=== PATIENT | female | born 1980 | race Two or more races ===

== ENCOUNTER 2020-05-29 03:48 | Emergency (ER) | payer SELFPAY ==
[~2020-05-29] VITALS: Ht 162.6 cm; Wt 77.1 kg
[2020-05-29 04:39] VITALS: BP 128/92
== END 2020-05-29 08:29 | disposition home or self-care (01) ==
LOC: ER 03:48
DX: B34.9 Viral infection, unspecified (principal); Z20.828 Contact with and (suspected) exposure to other viral communicable diseases
CPT/HCPCS: 71045

== ENCOUNTER 2021-01-10 14:37 | Emergency (ER) | payer MEDICAID, OTHER ==
[~2021-01-10] VITALS: Ht 160 cm; Wt 79.4 kg
[2021-01-10 16:09] VITALS: BP 158/83
== END 2021-01-10 16:23 | disposition home or self-care (01) ==
LOC: ER 14:37
DX: J02.9 Acute pharyngitis, unspecified (principal)